=== PATIENT | female | born 1985 | race Caucasian/White ===

== ENCOUNTER 2016-07-10 00:19 | Emergency (ER) | payer MEDICAID ==
[~2016-07-10] VITALS: Ht 175.3 cm; Wt 108.9 kg
[2016-07-10 00:19] VITALS: BP_SYST 178
[2016-07-10 02:39] LABS: BILIRUBIN,URINE NEGATIVE (NEGATIVE); BLOOD, URINE NEGATIVE (NEGATIVE); CLARITY/URINE CLEAR (CLEAR); COLOR,URINE YELLOW (YELLOW); GLUCOSE,URINE NEGATIVE (NEGATIVE); KETONES,URINE NEGATIVE (NEGATIVE); LEUKOCYTE ESTERASE ,URINE NEGATIVE (NEGATIVE); NITRITE, URINE NEGATIVE (NEGATIVE); PH,URINE 6.5 (5.0-8.0); PROTEIN URINE NEGATIVE (NEGATIVE); UROBILINOGEN,URINE 0.2 (0.2-1.0)
[2016-07-10] MEDS ORDERED: cefTRIAXone 250 MG in LIDOCAINE 1%, 20 ML MDV 0.9 ML IM ONE (04:30)
[2016-07-10] MEDS ORDERED: cefTRIAXone 250 MG VIAL ONE (04:50)
[2016-07-10 05:46] VITALS: BP_SYST 151
[2016-07-12 03:06] LABS: CHLAMYDIA TRACHOMATIS NAA Negative (Negative); NEISSERIA GONORRHOEAE NAA Negative (Negative)
== END 2016-07-10 05:46 | disposition home or self-care (01) ==
LOC: SED 00:19
DX: A64 Unspecified sexually transmitted disease (principal); I10 Essential (primary) hypertension
CPT/HCPCS: 81003; 81025; 87210; 87491; 87591; 96372; 99284; J0696

== ENCOUNTER 2017-02-11 22:23 | Emergency (ER) | payer MEDICAID ==
[~2017-02-11] VITALS: Ht 175.3 cm; Wt 112.9 kg
[2017-02-11 22:25] VITALS: BP_SYST 186
--- NOTE | 2017-02-12 01:45 | NUR ---
Placed in room 08 . Placed on traffic monitor specialist, blood pressure machine and pulse oximeter. To gown for exam. Side rails up. Report given to WENDY Amaro.
--- NOTE | 2017-02-12 01:50 | NUR ---
Patient AAO x4, sitting in bed, c/o cough x 2 weeks that is increasing with inability to take a full breaht. No active cough at this time. Will continue to monitor.
--- NOTE | 2017-02-12 02:00 | NUR ---
ER at bedside examining patient.
[2017-02-12 02:20] VITALS: BP_SYST 145
--- NOTE | 2017-02-12 02:20 | NUR ---
Patient given written and verbal discharge instructions and verbalizes understanding. ER MD discussed with patient the results and treatment provided. Patient in stable condition. ID arm band removed. IV catheter removed intact and dressing applied, no active bleeding. Rx of azithromycin and guaifenesin given. Patient educated on pain management and to follow up with PMD. Pain Scale 0/10 . Opportunity for questions provided and answered.
[2017-02-12] MEDS ORDERED: DIPH-TET Vacc 0.5 ML VIAL I.M. ONE (02:30)
== END 2017-02-12 02:20 | disposition home or self-care (01) ==
LOC: SED 22:23
DX: J40 Bronchitis, not specified as acute or chronic (principal); I10 Essential (primary) hypertension
CPT/HCPCS: 71010; 81025; 99283

== ENCOUNTER 2017-03-31 20:19 | Emergency (ER) | payer MEDICAID ==
[~2017-03-31] VITALS: Ht 175.3 cm; Wt 113.4 kg
[2017-03-31 20:20] VITALS: BP_SYST 192
[2017-03-31] MEDS ORDERED: cloNIDine HCL 0.1 MG TABLET PO ONE (21:15)
[2017-04-01 00:21] VITALS: BP_SYST 153
== END 2017-04-01 00:21 | disposition home or self-care (01) ==
LOC: SED 20:19
DX: R22.1 Localized swelling, mass and lump, neck (principal); E28.2 Polycystic ovarian syndrome; I10 Essential (primary) hypertension
CPT/HCPCS: 76536-TC; 81025; 99284